=== PATIENT | male | born 1970 | race Caucasian/White ===

== ENCOUNTER 2017-08-14 22:19 | Emergency (ER) | payer SELFPAY ==
[~2017-08-14] VITALS: Ht 188 cm; Wt 90.7 kg
[2017-08-14] MEDS ORDERED: Cipro500 MG PO (23:41)
[2017-08-14] MEDS ORDERED: Flagyl500 MG PO (23:41)
== END 2017-08-14 23:52 | disposition home or self-care (01) ==
LOC: ER 22:19
DX: K62.89 Other specified diseases of anus and rectum (principal); Z87.891 Personal history of nicotine dependence
CPT/HCPCS: 99283